=== PATIENT | male | born 1975 | race Caucasian/White ===

== ENCOUNTER 2022-04-10 19:04 | Emergency (ER) | payer BC ==
[~2022-04-10] VITALS: Ht 182.9 cm; Wt 89.8 kg
[2022-04-10] MEDS ORDERED: LIDOCAINE HCL/PF 1% 10 MG/ML 5ML VIAL INFIL ONE (23:15)
[2022-04-10] MEDS ORDERED: BACITRACIN ZINC OINT UDPKT TOP ONE (23:15)
[2022-04-10] MEDS ORDERED: TETANUS, DIPHTHERIA, PERTUSSIS VAC/PF 0.5ML (>10YR OLD) IM ONE (23:15)
[2022-04-10] MEDS ORDERED: IBUPROFEN 200MG TABLET PO ONE (23:15)
[2022-04-10 23:49] VITALS: BP 122/81
[2022-04-11] MEDS ORDERED: CEPH500T MT (00:10)
[2022-04-11] MEDS ORDERED: SULF1TAB48 MT (00:10)
== END 2022-04-11 00:16 | disposition home or self-care (01) ==
LOC: ER 21:44
DX: L02.416 Cutaneous abscess of left lower limb (principal)
CPT/HCPCS: 10060; 90471; 90715; 99283; J3490; Z7610